=== PATIENT | female | born 2000 | race African-American/Black ===

== ENCOUNTER 2023-10-30 00:05 | Emergency (ER) | payer BC ==
[2023-10-30 00:15] VITALS: BP 119/71; PULSE 100; RESP 18; TEMP 98.1; BMI 40.7
== END 2023-10-30 00:51 | disposition home or self-care (01) ==
LOC: FER 00:05
DX: R50.9 Fever, unspecified (principal); M79.10 Myalgia, unspecified site; B34.9 Viral infection, unspecified; Z20.822 Contact with and (suspected) exposure to COVID-19
CPT/HCPCS: 0241U-QW; 99283-25